=== PATIENT | female | born 1935 ===

== ENCOUNTER 2017-09-04 07:39 | Day surgery (SDC) | payer MEDICARE ==
[2017-09-04 08:11] VITALS: BMI 30.7
[2017-09-04] MEDS ORDERED: Propofol 10 mg/ml Inj (20 ML) ONE (08:12)
[2017-09-04] MEDS ORDERED: Albuterol HFA 90 mcg/actuation (8 g) ONE (08:30)
[2017-09-04] MEDS ORDERED: Lactated Ringer's 500 ML IV SCH (08:30)
--- NOTE | 2017-09-04 08:45 | CP.SDSHP ---
Same Day Surgery H & P - History Proposed Procedure: EGD Pre-Op Diagnosis: Nausea and vomiting, dyspepsia, HERNANDEZ - Previous Medical/Surgical History Cardiac: Hypertension Pulmonary: Asthma Endocrine/Metabolic: Diabetes Misc: Other Comments: HERNANDEZ, ITP, iron overload Previous Surgical History: Cholecystectomy - Allergies Allergies: Allergies No Known Allergies Allergy (Verified 09/04/17 08:10) - Current Medications Current Medications: See reconciliation - Physical Exam General Appearance: WD WN female in NAD Vital Signs: Vital Signs 09/04/17 08:05 Temperature 98.7 F Pulse Rate 73 Respiratory 19 Rate Blood Pressure 170/79 H O2 Sat by Pulse 97 Oximetry Mental Status: Alert & Oriented x3 Neuro: WNL Heart: WNL Lungs: WNL GI: WNL - {Optional Preform as Required} Abdomen: WNL - Impression Impression: Nausea and vomiting, dyspepsia, HERNANDEZ Pt. Evaluated Today:Candidate for Anesthesia & Procedure: Yes - Date & Time Date: 09/04/17 Time: 08:45 Short Stay Discharge - Short Stay Discharge Admitting Diagnosis/Reason for Visit: DYSPEPSIA Disposition: HOME/ ROUTINE
[2017-09-04 09:25] VITALS: TEMP 98.2
[2017-09-04 10:16] VITALS: BP 158/67; PULSE 68; RESP 19; O2SAT 98
== END 2017-09-04 10:16 | disposition home or self-care (01) ==
LOC: C.ENDO 07:39
PROVIDERS: ATTEND Internal Medicine Gastroenterology
DX: K30 Functional dyspepsia (principal); I85.00 Esophageal varices without bleeding; K29.70 Gastritis, unspecified, without bleeding
CPT/HCPCS: 43239; 82948; 88305; 88313; 88342; J2001; J2704; J3010; J7120

== ENCOUNTER 2017-11-13 06:44 | Day surgery (SDC) | payer MEDICARE ==
[2017-11-13 07:29] VITALS: BMI 29.2
[2017-11-13] MEDS ORDERED: Lidocaine Hydrochloride 5 ML INJ ONE (09:26)
[2017-11-13] MEDS ORDERED: Propofol 10 mg/ml Inj (20 ML) ONE (09:26)
[2017-11-13] MEDS ORDERED: Lactated Ringer's 500 ML IV ONE (09:27)
[2017-11-13] MEDS ORDERED: Lactated Ringer's 500 ML IV SCH (09:30)
--- NOTE | 2017-11-13 09:31 | CP.SDSHP ---
Same Day Surgery H & P - History Proposed Procedure: Colonoscopy Pre-Op Diagnosis: Abnormal CT scan of colon - Previous Medical/Surgical History Cardiac: Hypertension Pulmonary: Asthma Endocrine/Metabolic: Diabetes Misc: Other Comments: Steatohepatitis, ITP, RA Previous Surgical History: Choolecystectomy - Allergies Allergies: Allergies No Known Allergies Allergy (Verified 11/13/17 07:28) - Current Medications Current Medications: See reconciliation sheet - Physical Exam General Appearance: WD obese female in NAD Vital Signs: Vital Signs 11/13/17 11/13/17 07:29 07:49 Temperature 97.0 F L Pulse Rate 79 79 Respiratory 19 Rate Blood Pressure 146/73 O2 Sat by Pulse 100 Oximetry Mental Status: Alert & Oriented x3 Neuro: WNL Heart: WNL Lungs: WNL GI: WNL - {Optional Preform as Required} Abdomen: WNL - Impression Impression: Abnormal CT scan Pt. Evaluated Today:Candidate for Anesthesia & Procedure: Yes - Date & Time Date: 11/13/17 Time: 09:31 Short Stay Discharge - Short Stay Discharge Admitting Diagnosis/Reason for Visit: ABNORMAL FINDINGS Disposition: HOME/ ROUTINE
[2017-11-13] MEDS ORDERED: Albuterol HFA 90 mcg/actuation (8 g) ONE (09:32)
[2017-11-13 10:18] VITALS: TEMP 97.2
[2017-11-13 10:40] VITALS: RESP 12; O2SAT 100
[2017-11-13 10:57] VITALS: BP 122/74; PULSE 67
== END 2017-11-13 10:55 | disposition home or self-care (01) ==
LOC: C.ENDO 06:44
PROVIDERS: ATTEND Internal Medicine Gastroenterology
DX: D12.3 Benign neoplasm of transverse colon (principal); K57.30 Diverticulosis of large intestine without perforation or abscess without bleeding; K64.0 First degree hemorrhoids
CPT/HCPCS: 45380; 82948; 88305; J2704; J7120